=== PATIENT | male | born 1945 | race Caucasian/White ===

== ENCOUNTER 2022-05-07 03:28 | Observation (INO) ==
[2022-05-07] MEDS ORDERED: fentaNYL citrate 100 MCG/2 ML VIAL IV STA (03:46)
[2022-05-07] MEDS ORDERED: ASPIRIN CHEW 324 MG PO STA (03:46)
--- NOTE | 2022-05-07 03:55 | Emergency Department Note ---
History of Present Illness General Chief complaint: Back Injury/Pain Stated complaint: BACK PAIN Time Seen by Provider: 05/07/22 03:40 History of Present Illness Maximum Pain Intensity: 7 77-year-old male with a history of hypertension and diabetes presents with a 2- day history of initially intermittent mid scapular back pain that is nonradiating in nature. Patient denies substernal chest pressure denies left arm pain denies nausea vomiting or diaphoresis. Patient states he had taken a Tylenol which seemed to decrease the pain. Patient denies any recent injury. Patient denies cough cold congestion or fever. Patient was seen by a physician public health training assistant was told to monitor it and take Tylenol. Patient states that the pain worsened yesterday morning its been and its been mid scapular is nonradiating there are no other associated symptoms. There are no other mitigating or torie viating factors. Patient has no prior history of acute coronary syndrome acute PA acute thoracic aortic dissection or acute pulmonary embolism according the patient. Home Medications Medication Instructions Recorded Confirmed Type blood sugar diagnostic (FreeStyle #100 ea 01/02/22 05/06/22 Rx Lite Strips) metformin 500 mg tablet 500 mg PO BID #180 tab 01/02/22 05/06/22 Rx simvastatin 20 mg tablet 20 mg PO QPM #90 tab 01/02/22 05/06/22 Rx sitagliptin 100 mg tablet (Januvia) 100 mg PO QAM #90 tab 01/02/22 05/06/22 Rx lisinopril 20 mg tablet 20 mg PO QAM 02/16/22 05/06/22 History cholecalciferol (vitamin D3) 25 25 mcg PO DAILY 05/06/22 05/06/22 History mcg (1,000 unit) capsule Allergies Allergy/AdvReac Type Severity Reaction Status Date / Time No Known Drug Allergies Allergy NKDA Verified 05/06/22 12:36 Past Med/Surg History Medical History BPH NOS w ur obs/LUTS Chronic kidney disease, stage 3 (moderate) Diabetes mellitus, type 2 Hyperlipidemia Hypertension Nephrolithiasis Obstructive sleep apnea Vitamin D deficiency Surgical History H/O umbilical hernia repair History of lithotripsy Hx of tonsillectomy Family History Mother Pancreatic cancer Father , age 70 No problems noted. Other No family history of adverse response to anesthesia Denies family history of Ovarian cancer Prostate cancer Myocardial infarction Breast cancer Colorectal cancer Social History Smoking Status: Current every day smoker Tobacco Type: Cigarettes Age Quit Using Tobacco: 76; packs per day: 0.5; Cigarettes Per Day: 10 PER DAY; Second Hand Exposure: Yes; Hx Alcohol Use: No Hx Substance Use: No Preferred Language: Yi Communication Ability: Effective Visual Impairment: No Limitations Hearing Ability: Normal Parking Attendant Required: No Beliefs That Will Affect Care: None marital status: Current Living Situation: Spouse and Family Current Living Situation Comment: AND DAUGHTER current occupational status: retired current occupation: [employer] How many Children do You have: 1 How many Children do You have Comment: 1 daughter Feels Safe at Home: Yes Diet Comment: regular caffeine: Yes during the past year weight has: increased > 10 lbs Dental Care, Regularly: Yes Physical Activity Frequency: Daily Seatbelt Use: always Sunscreen Use: No Assistive Devices: CPAP Review of Systems A total of 10 systems reviewed and were otherwise negative Constitutional: no fever Cardiovascular: no chest pain and no orthopnea Gastrointestinal: no abdominal pain Musculoskeletal: + back pain Physical Exam Vital Signs Vital Signs - 24 hr 05/07/22 03:32 05/07/22 04:00 05/07/22 04:39 Temperature 36.4 C L Temperature Source Temporal Artery Scan Pulse Rate 100 H 86 104 H Pulse Rate from SpO2 Sensor 90 95 H Respiratory Rate 20 21 19 Respiratory Effort / Characteristics Non-Labored Spontaneous Respiratory Depth Normal Blood Pressure 168/76 H 140/79 137/93 Blood Pressure Mean 106 99 107 Pulse Oximetry 95 95 86 L Oxygen Delivery Method Room Air Room Air Room Air Oxygen Flow Rate Sepsis New/Unexplained Change in Mental Status N/A Sepsis Action Taken by Nursing No Action Required 05/07/22 04:42 05/07/22 05:00 05/07/22 05:37 Temperature Temperature Source Pulse Rate 87 87 Pulse Rate from SpO2 Sensor Respiratory Rate 17 20 Respiratory Effort / Characteristics Respiratory Depth Blood Pressure 147/88 H 131/79 Blood Pressure Mean 107 96 Pulse Oximetry 96 97 93 Oxygen Delivery Method Nasal Cannula Nasal Cannula Room Air Oxygen Flow Rate 2 2 Sepsis New/Unexplained Change in Mental Status Sepsis Action Taken by Nursing 05/07/22 06:00 Temperature Temperature Source Pulse Rate 86 Pulse Rate from SpO2 Sensor 89 Respiratory Rate 17 Respiratory Effort / Characteristics Respiratory Depth Blood Pressure 127/66 Blood Pressure Mean 86 Pulse Oximetry 94 Oxygen Delivery Method Room Air Oxygen Flow Rate Sepsis New/Unexplained Change in Mental Status Sepsis Action Taken by Nursing VITAL SIGNS - Vital signs and nursing notes were reviewed. GENERAL - No acute distress. Communicates well with provider and answers questions appropriately. SKIN - Without rashes. HEAD - NC/AT. EYES - PERRL with EOMI bilaterally. Sclera anicteric. Palpebral conjunctiva pink and moist with no injection noted. EARS - No deformities of external structures noted on gross examination bilaterally. NOSE - Midline and without cyanosis. No epistaxis or purulent drainage noted. Septum midline without deviation or septal hematoma noted. MOUTH/OROPHARYNX - Without perioral cyanosis. . Tongue midline with equal elevation of palate bilaterally. No tonsillar hypertrophy, erythema, or exudates noted. [] dentition noted. NECK - Neck with FROM. Supple to palpation. LUNGS - Chest wall symmetric without accessory muscle use, intercostals retractions, or central cyanosis. Normal vesicular breath sounds CTA B/L. No wheezes, rales, or rhonchi appreciated. CARDIAC - RRR with S1/S2. No murmur, rubs, or gallops appreciated. ABDOMEN - Abdominal contour soft without pulsations or visible masses. BS normoactive all four quadrants. No tenderness, palpable masses, hepatosplenomegaly, or ascites noted. EXTREMITIES - No clubbing or peripheral cyanosis. +5/5 strength noted in UE/LE bilaterally. NEUROLOGIC - Cranial nerves II through XII grossly intact. PSYCH - A&Ox3 and cooperates fully with examiner. Pt is very pleasant and interacts well with examiner. Course Reevaluation(s) Reevaluation #1: Patient is resting in no current distress. No significant back or chest pain. Patient is awaiting CT. The case was discussed with the hospitalist for a dmission. Patient is a diabetic with hypertension and is having mid scapular back pain. Will admit for cardiac rule out Time: 05:52 Administered Medications Discontinued Medications Aspirin (Aspirin Chew 324 Mg) 324 mg PO NOW STA Stop: 05/07/22 03:47 Last Admin: 05/07/22 03:51 Dose: 324 mg Documented by: [id number] Fentanyl Citrate (Fentanyl Citrate 100 Mcg/2 Ml Vial) 50 mcg IV NOW STA Stop: 05/07/22 03:47 Last Admin: 05/07/22 03:51 Dose: 50 mcg Documented by: [id number] Ioversol (Optiray 320 125ml) 100 ml IV ONCE ONE Stop: 05/07/22 04:37 Last Admin: 05/07/22 04:36 Dose: 108 ml Documented by: [id number] Medical Decision Making Medical Records Attestation: I reviewed the patient's medical records. Home Medications Current Medication List: was personally reviewed by me Laboratory Data Attestation: I reviewed the patient's lab results. Result diagrams: 05/07/22 03:49 05/07/22 03:49 Lab Results 05/07/22 05/07/22 05/07/22 Range/Units 03:49 03:49 03:49 WBC 10.72 (4.8-10.8) K/uL RBC 5.09 (4.7-6.1) M/uL Hgb 16.3 (14.0-18.0) g/dL Hct 46.5 (42-52) % MCV 91.4 (80-100) fL MCH 32.0 (25-34) pg MCHC 35.1 (32-36) g/dL RDW Std Deviation 44.8 (36.4-46.3) fL RDW Coeff of Johan 13.4 (11.5-14.5) % Plt Count 398 (130-400) K/uL MPV 9.0 (7.4-10.4) fL Immature Gran % (Auto) 0.4 % Neut % (Auto) 58.4 % Lymph % (Auto) 28.3 % [place] % (Auto) 10.0 % Eos % (Auto) 2.5 % Baso % (Auto) 0.4 % Neut # (Auto) 6.27 (1.4-6.5) K/uL Lymph # (Auto) 3.03 (1.2-3.4) K/uL [place] # (Auto) 1.07 H (0.11-0.59) K/uL Eos # (Auto) 0.27 (0-0.5) K/uL Baso # (Auto) 0.04 (0-0.2) K/uL Immature Gran # (Auto) 0.04 H (0.00-0.02) K/uL PT 10.4 (9.0-12.0) Seconds INR 1.0 (0.9-1.1) APTT 28.6 (21.0-31.0) Seconds PTT Ratio 1.0 D-Dimer 690 H* (0-500) ug/L FEU Sodium 136 (136-145) mmol/L Potassium 4.5 (3.5-5.1) mmol/L Chloride 103 (98-107) mmol/L Carbon Dioxide 26 (21-32) mmol/L Anion Gap 7 (3-11) BUN 25 H (6-23) mg/dl Creatinine 1.63 H (0.6-1.4) mg/dl Est Cr Clr Drug Dosing 46.8 ml/min Est GFR ( Amer) 47.1 ml/min Est GFR (Non-Af Amer) 40.6 ml/min BUN/Creatinine Ratio 15.3 (10-20) Glucose 133 H (70-99(Fasting)) mg/dl Calcium 9.8 (8.5-10.1) mg/dl Total Bilirubin 0.7 (0.2-1.0) mg/dl AST 26 (13-39) U/L ALT 27 (7-52) U/L Alkaline Phosphatase 62 (34-104) U/L Troponin I High Sens 9.3 (0-20) pg/ml Total Protein 7.8 (6.0-8.3) gm/dl Albumin 4.3 (3.4-5.0) gm/dl Globulin 3.5 (2.5-4.0) gm/dl Albumin/Globulin Ratio 1.2 (0.9-2) SARS-CoV-2, RNA, NAAT (NEGATIVE) 05/07/22 Range/Units 03:55 WBC (4.8-10.8) K/uL RBC (4.7-6.1) M/uL Hgb (14.0-18.0) g/dL Hct (42-52) % MCV (80-100) fL MCH (25-34) pg MCHC (32-36) g/dL RDW Std Deviation (36.4-46.3) fL RDW Coeff of Johan (11.5-14.5) % Plt Count (130-400) K/uL MPV (7.4-10.4) fL Immature Gran % (Auto) % Neut % (Auto) % Lymph % (Auto) % [place] % (Auto) % Eos % (Auto) % Baso % (Auto) % Neut # (Auto) (1.4-6.5) K/uL Lymph # (Auto) (1.2-3.4) K/uL [place] # (Auto) (0.11-0.59) K/uL Eos # (Auto) (0-0.5) K/uL Baso # (Auto) (0-0.2) K/uL Immature Gran # (Auto) (0.00-0.02) K/uL PT (9.0-12.0) Seconds INR (0.9-1.1) APTT (21.0-31.0) Seconds PTT Ratio D-Dimer (0-500) ug/L FEU Sodium (136-145) mmol/L Potassium (3.5-5.1) mmol/L Chloride (98-107) mmol/L Carbon Dioxide (21-32) mmol/L Anion Gap (3-11) BUN (6-23) mg/dl Creatinine (0.6-1.4) mg/dl Est Cr Clr Drug Dosing ml/min Est GFR ( Amer) ml/min Est GFR (Non-Af Amer) ml/min BUN/Creatinine Ratio (10-20) Glucose (70-99(Fasting)) mg/dl Calcium (8.5-10.1) mg/dl Total Bilirubin (0.2-1.0) mg/dl AST (13-39) U/L ALT (7-52) U/L Alkaline Phosphatase (34-104) U/L Troponin I High Sens (0-20) pg/ml Total Protein (6.0-8.3) gm/dl Albumin (3.4-5.0) gm/dl Globulin (2.5-4.0) gm/dl Albumin/Globulin Ratio (0.9-2) SARS-CoV-2, RNA, NAAT NEGATIVE (NEGATIVE) Imaging Data Attestation: I personally reviewed and interpreted this imaging study as follows: My Impression: Chest x-ray interpreted by me normal mediastinum no obvious pneumothorax negative for infiltrate Radiologist's Impression: CTA CHEST: Prior noncontrast chest CT 02/16/2022 No PE No aortic dissection or aneurysm Mild basilar atelectasis. Lower lobe bronchial wall thickening. Correlate for bronchitis/edema. Coronary calcifications. Partially visualized distended gallbladder. Atrophic pancreas. Nodular adrenal glands. ECG Data Attestation: I personally reviewed and interpreted this ECG as follows: Additional Comments: EKG interpreted by me sinus rhythm rate of 89, right bundle branch block no obvious ST segment elevation or depression, right axis deviation, degree AV block MDM Narrative Decision making differential diagnosis angina, unstable angina, acute coronary syndrome, acute PA, thoracic aortic dissection, pulmonary embolism, musculoskeletal back pain; plan is to check labs EKG CT Impression & Plan Back pain Discharge Plan Visit Data Chief Complaint: Back Injury/Pain Stated Complaint: BACK PAIN ED Provider: Marcus Garcia Discharge Problem: Back pain Patient Disposition: Being Evaluated by Hospitalist Forms Stand Alone Forms: My [facility] [place] [employer] [place]! Prescriptions Prescriptions: No Action (DME) FreeStyle Lite Strips Strip See Rx Instructions .Route Qty: 100 RF: 5 metformin 500 mg tablet 500 mg PO BID Qty: 180 RF: 1 simvastatin 20 mg tablet 20 mg PO QPM Qty: 90 RF: 1 Januvia 100 mg tablet 100 mg PO QAM Qty: 90 RF: 1 cholecalciferol (vitamin D3) 25 mcg (1,000 unit) capsule 25 mcg PO DAILY RF: 0 lisinopril 20 mg tablet 20 mg PO QAM RF: 0 Referrals Referrals: Laurie Lynn DO [Primary Care Provider] - Discharge Problem: Back pain Qualifiers: Back pain location: thoracic back pain Chronicity: acute Back pain laterality: midline Qualified Code(s): M54.6 - Pain in thoracic spine
[2022-05-07 03:58] LABS: Basophils # (auto) 0.04 K/uL (0-0.2); Basophils % (auto) 0.4 %; Eosinophils # (auto) 0.27 K/uL (0-0.5); Eosinophils % (auto) 2.5 %; Hematocrit (blood only) 46.5 % (42-52); Hemoglobin 16.3 g/dL (14.0-18.0); Immature Granulocytes # (auto) 0.04 K/uL (0.00-0.02); Immature Granulocytes % (auto) 0.4 %; Lymphocytes # (auto) 3.03 K/uL (1.2-3.4); Lymphocytes % (auto) 28.3 %; Mean Corpuscular Hgb Conc 35.1 g/dL (32-36); Mean Corpuscular Volume 91.4 fL (80-100); Monocytes # (auto) 1.07 K/uL (0.11-0.59); Neutrophils # (auto) 6.27 K/uL (1.4-6.5); Neutrophils % (auto) 58.4 %; Platelet Count 398 K/uL (130-400); RDW Coefficient of Variation 13.4 % (11.5-14.5); RDW Standard Deviation 44.8 fL (36.4-46.3); Red Blood Count 5.09 M/uL (4.7-6.1); White Blood Count 10.72 K/uL (4.8-10.8)
[2022-05-07 04:15] LABS: Partial Thromboplastin Time 28.6 Seconds (21.0-31.0); Prothrombin Time 10.4 Seconds (9.0-12.0)
[2022-05-07 04:18] LABS: D Dimer 690 ug/L FEU (0-500)
[2022-05-07 04:20] LABS: Albumin Globulin Ratio 1.2 (0.9-2); Albumin Level 4.3 gm/dl (3.4-5.0); BUN Creatinine Ratio 15.3 (10-20); Bilirubin,Total 0.7 mg/dl (0.2-1.0); Calcium 9.8 mg/dl (8.5-10.1); Creatinine Clr Calc Pharmacy 46.8 ml/min; Est GFR (African American) 47.1 ml/min; Est GFR (Non-African American) 40.6 ml/min; Globulin 3.5 gm/dl (2.5-4.0); Potassium 4.5 mmol/L (3.5-5.1); Total Protein 7.8 gm/dl (6.0-8.3)
[2022-05-07 04:23] LABS: Troponin I High Sensitivity 9.3 pg/ml (0-20)
[2022-05-07] MEDS ORDERED: OPTIRAY 320 125ml IV ONE (04:36)
--- NOTE | 2022-05-07 06:16 | History & Physical Report ---
Date of Service May 07, 2022 Assessment & Plan (1) Interscapular pain: Plan: Persistent interscapular pain- The patient will be admitted to telemetry for serial cardiac enzymes, serial EKG's, cardiac rhythm monitoring and a 2-D echocardiogram with Dopplers. Concerned about the possibility of an anginal equivalent Chest x-ray negative for acute disease CTA chest PE protocol is pending, and will be acted on appropriately if PE is present (2) Chronic kidney disease, stage 3 (moderate): Plan: Creatinine 1.63 upon admission, with range 1.49-1.95 Follow serially (3) Vitamin D deficiency: Plan: Continue vitamin D 25 mcg p.o. daily (4) Hyperlipidemia: Plan: Continue simvastatin 20 mg every evening. Check a fasting lipid panel (5) BPH NOS w ur obs/LUTS: Plan: Monitor urine output (6) Hypertension: Plan: Continue lisinopril (7) Diabetes mellitus, type 2: Plan: Hold Sitagliptin and metformin Place on Accu-Cheks before meals and at bedtime with NovoLog coverage per scale (8) Obstructive sleep apnea: Plan: CPAP at bedtime as needed History of Present Illness Chief Complaint: The patient presents to the emergency department with 2 days of interscapular back pain that had initially been getting better, but since it worsened over the past 24 hours, he presents for assessment. Primary Care Provider: Laurie Lynn DO The patient is a 77-year-old male with a past medical history including diabetes mellitus, hypertension, hyperlipidemia, BPH with LUTS, ARIANE, left ureteral calculus, and vitamin D deficiency. He presents with symptoms as noted above. He reports having a similar pain about 1 and half years ago, which responded to steroids. He denies any recent travels or sick exposures. He denies any change in physical activity level. Allergies Allergy/AdvReac Type Severity Reaction Status Date / Time No Known Drug Allergies Allergy NKDA Verified 05/06/22 12:36 Home Medications Medication Instructions Recorded Confirmed Type blood sugar diagnostic (FreeStyle #100 ea 01/02/22 05/06/22 Rx Lite Strips) metformin 500 mg tablet 500 mg PO BID #180 tab 01/02/22 05/06/22 Rx simvastatin 20 mg tablet 20 mg PO QPM #90 tab 01/02/22 05/06/22 Rx sitagliptin 100 mg tablet (Januvia) 100 mg PO QAM #90 tab 01/02/22 05/06/22 Rx lisinopril 20 mg tablet 20 mg PO QAM 02/16/22 05/06/22 History cholecalciferol (vitamin D3) 25 25 mcg PO DAILY 05/06/22 05/06/22 History mcg (1,000 unit) capsule Past Med/Surg History Medical History BPH NOS w ur obs/LUTS Chronic kidney disease, stage 3 (moderate) Diabetes mellitus, type 2 Hyperlipidemia Hypertension Nephrolithiasis Obstructive sleep apnea Vitamin D deficiency Surgical History H/O umbilical hernia repair History of lithotripsy Hx of tonsillectomy Family History Mother Pancreatic cancer Father , age 70 No problems noted. Other No family history of adverse response to anesthesia Denies family history of Ovarian cancer Prostate cancer Myocardial infarction Breast cancer Colorectal cancer Social History Smoking Status: Current every day smoker Tobacco Type: Cigarettes Age Quit Using Tobacco: 76; packs per day: 0.5; Cigarettes Per Day: 10 PER DAY; Second Hand Exposure: Yes; Hx Alcohol Use: No Hx Substance Use: No Preferred Language: Gabonese Communication Ability: Effective Visual Impairment: No Limitations Hearing Ability: Normal Char Filter Operator Helper Required: No Beliefs That Will Affect Care: None marital status: Current Living Situation: Spouse and Family Current Living Situation Comment: AND DAUGHTER current occupational status: retired current occupation: [employer] of [employer] How many Children do You have: 1 How many Children do You have Comment: 1 daughter Feels Safe at Home: Yes Diet Comment: regular caffeine: Yes during the past year weight has: increased > 10 lbs Dental Care, Regularly: Yes Physical Activity Frequency: Daily Seatbelt Use: always Sunscreen Use: No Assistive Devices: CPAP Review of Systems Review of Systems: The patient denies chest pain, palpitations, shortness of breath, dyspnea on exertion, cough, lower extremity swelling, sore throat, fevers, chills, sweats, weight change, fatigue, nausea, vomiting, diarrhea , constipation, abdominal pain, pelvic pain, blood in urine or stool, dysuria, urinary frequency or urgency, lightheadedness, dizziness, headache, memory loss, loss of consciousness, rash, abnormal bruising or bleeding, imbalance, focal or generalized weakness, numbness or tingling in arms or legs, generalized arthralgias or myalgias, neck pain, or night sweats. The review of systems is otherwise negative other than for that already noted above, and at least 10 systems have been reviewed. Physical Exam Physical Exam: The patient is awake, alert and oriented 3, well developed and well nourished, normocephalic and atraumatic, lying in bed and in no acute distress. HEENT--PERRL, EOMI, mucous membranes and oropharynx normal. Neck--supple. No JVD. No bruits. Thyroid normal, trachea midline, no adenopathy. Heart--normal S1 and S2. No murmurs, rubs or gallops. Lungs--clear bilaterally, no respiratory distress, no accessory muscle use. Abdomen--normal bowel sounds and soft. Nontender. Nondistended, no hernias or masses, no organomegaly. Extremities--no cyanosis or clubbing. No edema. There are good distal pulses b/l. Dermatologic--normal skin turgor, normal color, no abnormal lymph nodes, no rash. Neurologic--cranial nerves II through XII grossly intact. Rheumatologic--normal range of motion. No reproducible cervical, thoracic, or lumbar spine back pain Psychiatric--normal affect. Results & Data Results & Data ([facility]) Vital Signs (Past 12 Hours) Vital Signs Temp Pulse Resp BP Pulse Ox 05/07/22 05:00 87 17 147/88 H 97 05/07/22 04:42 96 05/07/22 04:39 104 H 19 137/93 86 L 05/07/22 04:00 86 21 140/79 95 05/07/22 03:32 36.4 C L 100 H 20 168/76 H 95 Laboratory Results Laboratory Results WBC 10.72 K/uL (4.8-10.8) 05/07/22 03:49 RBC 5.09 M/uL (4.7-6.1) 05/07/22 03:49 Hgb 16.3 g/dL (14.0-18.0) 05/07/22 03:49 Hct 46.5 % (42-52) 05/07/22 03:49 MCV 91.4 fL (80-100) 05/07/22 03:49 MCH 32.0 pg (25-34) 05/07/22 03:49 MCHC 35.1 g/dL (32-36) 05/07/22 03:49 RDW Std Deviation 44.8 fL (36.4-46.3) 05/07/22 03:49 RDW Coeff of Johan 13.4 % (11.5-14.5) 05/07/22 03:49 Plt Count 398 K/uL (130-400) 05/07/22 03:49 MPV 9.0 fL (7.4-10.4) 05/07/22 03:49 Immature Gran % (Auto) 0.4 % 05/07/22 03:49 Neut % (Auto) 58.4 % 05/07/22 03:49 Lymph % (Auto) 28.3 % 05/07/22 03:49 [place] % (Auto) 10.0 % 05/07/22 03:49 Eos % (Auto) 2.5 % 05/07/22 03:49 Baso % (Auto) 0.4 % 05/07/22 03:49 Neut # (Auto) 6.27 K/uL (1.4-6.5) 05/07/22 03:49 Lymph # (Auto) 3.03 K/uL (1.2-3.4) 05/07/22 03:49 [place] # (Auto) 1.07 K/uL (0.11-0.59) H 05/07/22 03:49 Eos # (Auto) 0.27 K/uL (0-0.5) 05/07/22 03:49 Baso # (Auto) 0.04 K/uL (0-0.2) 05/07/22 03:49 Immature Gran # (Auto) 0.04 K/uL (0.00-0.02) H 05/07/22 03:49 PT 10.4 Seconds (9.0-12.0) 05/07/22 03:49 INR 1.0 (0.9-1.1) 05/07/22 03:49 APTT 28.6 Seconds (21.0-31.0) 05/07/22 03:49 PTT Ratio 1.0 05/07/22 03:49 D-Dimer 690 ug/L FEU (0-500) H* 05/07/22 03:49 Sodium 136 mmol/L (136-145) 05/07/22 03:49 Potassium 4.5 mmol/L (3.5-5.1) 05/07/22 03:49 Chloride 103 mmol/L (98-107) 05/07/22 03:49 Carbon Dioxide 26 mmol/L (21-32) 05/07/22 03:49 Anion Gap 7 (3-11) 05/07/22 03:49 BUN 25 mg/dl (6-23) H 05/07/22 03:49 Creatinine 1.63 mg/dl (0.6-1.4) H 05/07/22 03:49 Est Cr Clr Drug Dosing 46.8 ml/min 05/07/22 03:49 Est GFR ( Amer) 47.1 ml/min 05/07/22 03:49 Est GFR (Non-Af Amer) 40.6 ml/min 05/07/22 03:49 BUN/Creatinine Ratio 15.3 (10-20) 05/07/22 03:49 Glucose 133 mg/dl (70-99(Fasting)) H 05/07/22 03:49 Calcium 9.8 mg/dl (8.5-10.1) 05/07/22 03:49 Total Bilirubin 0.7 mg/dl (0.2-1.0) 05/07/22 03:49 AST 26 U/L (13-39) 05/07/22 03:49 ALT 27 U/L (7-52) 05/07/22 03:49 Alkaline Phosphatase 62 U/L (34-104) 05/07/22 03:49 Troponin I High Sens 9.3 pg/ml (0-20) 05/07/22 03:49 Total Protein 7.8 gm/dl (6.0-8.3) 05/07/22 03:49 Albumin 4.3 gm/dl (3.4-5.0) 05/07/22 03:49 Globulin 3.5 gm/dl (2.5-4.0) 05/07/22 03:49 Albumin/Globulin Ratio 1.2 (0.9-2) 05/07/22 03:49 SARS-CoV-2, RNA, NAAT NEGATIVE (NEGATIVE) 05/07/22 03:55 Code Status & VTE Plan Code Status Full code VTE Prophylaxis Plan VTE Prophylaxis will be ordered: Yes PG Care Time/CCT Total # of Minutes Spent Total Time Spent with Patient: Total time spent is greater than 50% in coordination of care (as documented) at patient's floor/unit and/or counseling patient: Coding Level of Care Code INT OBSERVATION CARE 70M LVL 3 Diagnoses Interscapular pain M54.89 Chronic kidney disease, stage 3 (moderate) N18.30 Vitamin D deficiency E55.9 Hyperlipidemia E78.5 BPH NOS w ur obs/LUTS N40.1 Hypertension I10 Diabetes mellitus, type 2 E11.9 Obstructive sleep apnea G47.33
[2022-05-07] MEDS ORDERED: GLUCOSE 40% GEL 15 GM TUBE PO PRN (07:51)
[2022-05-07] MEDS ORDERED: GLUCAGON FOR INJ 1 MG VIAL SQ PRN (07:51)
[2022-05-07] MEDS ORDERED: ONDANSETRON INJ 2 MG/ML 2 ML VIAL IV PRN (07:51)
[2022-05-07] MEDS ORDERED: GLUCOSE 10 TABS/TUBE PO PRN (07:51)
[2022-05-07] MEDS ORDERED: DEXTROSE 50% 50 ML SYRINGE IV PRN (07:51)
[2022-05-07] MEDS ORDERED: NITROGLYCERIN SL 0.4 MG/TAB TAB SL PRN (07:51)
[2022-05-07] MEDS ORDERED: CARBOHYDRATES FOR HYPOGLYCEMIA PO PRN (07:51)
--- NOTE | 2022-05-07 07:53 | XRay Report ---
SINGLE VIEW CHEST CLINICAL HISTORY: Atypical chest pain FINDINGS: An AP, portable, upright chest radiograph is compared to study dated 02/28/2021 and correlat ed with chest CT dated 02/16/2022. The heart is mildly enlarged noting atherosclerotic calcification o f the thoracic aorta. The pulmonary vasculature is noncongested. Mild emphysema and chronic interstit ial thickening is similar to previous. There is bibasilar scarring/atelectasis. No airspace consolida tion or large pleural effusion is identified. No pneumothorax is seen. The skeletal structures are os teopenic. The bony thorax is grossly intact. IMPRESSION: Cardiomegaly and mild emphysema with no acute cardiopulmonary abnormality identified. ACT 112: Negative or not required by law. Electronically signed by: Darius Ford M.D. 05/07/2022 7:52 AM
--- NOTE | 2022-05-07 08:00 | CT Scan Report ---
CT ANGIOGRAM OF THE CHEST CLINICAL HISTORY: Atypical chest pain. COMPARISON STUDY: Chest x-ray dated 05/07/2022. Chest CT dated 02/16/2022. TECHNIQUE: Following the IV administration of 108 cc of Optiray 320, CT angiogram of the chest was pe rformed from the upper abdomen to the thoracic inlet utilizing the pulmonary embolus protocol. Images are reviewed in the axial, sagittal, and coronal planes. 3-D MIPS images are created and assessed. I V contrast was administered without complication. A dose lowering technique was utilized adhering to the principles of ALARA. CT DOSE: 511.33 mGy.cm FINDINGS: Thyroid: Imaged portions of the thyroid gland are normal in size and attenuation. Thoracic aorta: There is atherosclerotic calcification of the thoracic aorta, which is normal in celine liliana and demonstrates standard 3-vessel arch anatomy. No dissection is seen. Pulmonary vasculature: The pulmonary trunk is normal in caliber. There are no filling defects identif ied in main, lobar, or segmental pulmonary branches to suggest pulmonary embolus. Heart: The heart is enlarged and without pericardial effusion. The coronary arteries are densely calc ified. Lungs and pleural spaces: There is mild emphysematous change. No airspace consolidation typical for p neumonia or pleural effusion is identified. Minimal secretions are noted in the right mainstem bronch us. There is diffuse peribronchial thickening. Scarring/atelectasis is noted at the lung bases. A 5 m m nodule with central cavitation is again seen in the lingula on image 123. This is unchanged from pr evious. Mediastinum: There is no mediastinal lymphadenopathy. Meseret: Clear. Axillae: There is no axillary lymphadenopathy. Upper abdomen: There is a tiny hiatal hernia. The gallbladder is distended but otherwise normal as vi sualized. There is fatty atrophy of the pancreas. Skeletal structures: The skeletal structures are osteopenic. Mild degenerative change is noted in the shoulders and spine. No lytic or blastic bony lesions are seen. There is a subacute/healing right po sterolateral 8th rib fracture. IMPRESSION: 1. There is no evidence of pulmonary embolus in the main, lobar, or segmental pulmonary arteries. 2. Cardiomegaly and mild emphysema. 3. There is no airspace consolidation typical for pneumonia or pleural effusion. 4. Diffuse peribronchial thickening suggests bronchitis/reactive airway disease. Clinical correlation will be required. 5. There is a subacute/healing right posterolateral 8th rib fracture. 6. A 5 mm pulmonary nodule in the lingula is unchanged from 02/16/2022. If clinically warranted this c an be followed as per the Fleischner criteria. See below. 7. Advanced coronary artery calcification. Please refer to below summary of Fleischner criteria recommendations for follow-up of incidental CT n odules (Mavis Moyer, Guidelines for management of small pulmonary nodules detected on CT scans: A sta tement from the Fleischner Society, Radiology 237: [phone].) SOLID NODULES Solitary nodule size: <6 mm * low risk patients: no follow-up needed * high risk patients: optional CT at 12 months Solitary nodule size: 6-8 mm * low risk patients: follow-up at 6-12 months, then consider further follow-up at 18-24 months * high risk patients: initial follow-up CT at 6-12 months and then at 18-24 months if no change Solitary nodule size: >8 mm * either low or high risk patients - consider follow-up CT at 3 months, and/or CT-PET, and/or biopsy Multiple nodules size: <6 mm * low risk patients: no routine follow-up * high risk patients: optional CT at 12 months Multiple nodules size: 6-8 mm * low risk patients: follow-up at 3-6 months, then consider further follow-up at 18-24 months * high risk patients: follow-up at 3-6 months, then at 18-24 months if no change Multiple nodules size: >8 mm * low risk patients: follow-up at 3-6 months, then consider further follow-up at 18-24 months * high risk patients: follow-up at 3-6 months, then at 18-24 months if no change Note: newly detected indeterminate nodule in persons 35 years of age or older. * low risk patients: minimal or absent history of smoking and/or other known risk factors * high risk patients: history of smoking or of other known risk factors (e.g. first degree relative with lung cancer, or exposure to asbestos, radon, uranium) * if a nodule up to 8 mm is partly solid or is ground glass further follow-up is required after 24 m onths to exclude possible slow growing adenocarcinoma (ASHLEY) SUBSOLID NODULES Solitary pure ground-glass nodule * nodule size <6 mm - no CT follow-up required * nodule size >=6 mm - follow-up CT at 6-12 months, then every 2 years until 5 years Solitary part-solid nodule * nodule size <6 mm - no CT follow-up required * nodule size >=6 mm - follow-up CT at 3-6 months. If unchanged, and solid component remains <6 mm, then annual follow-up for 5 years Multiple subsolid nodules * nodule size <6 mm - follow-up CT at 3-6 months, consider further follow-up at 2 and 4 years if sta ble * nodule size >=6 mm - follow-up CT at 3-6 months, subsequent management based on the most suspiciou s nodule(s) ACT 112: Negative or not required by law. Electronically signed by: Darius Ford M.D. 05/07/2022 7:58 AM
[2022-05-07] MEDS: INSULIN ASPART PER UNIT SC SCH ×2 (08:44→12:35)
[2022-05-07] MEDS ORDERED: ASPIRIN 81 MG ECTAB PO SCH (09:00)
[2022-05-07] MEDS ORDERED: lisinopril 20 MG TAB PO SCH (09:00)
[2022-05-07] MEDS ORDERED: CHOLECALCIFEROL 1,000 UNITS 25 MCG TAB PO SCH (09:00)
[2022-05-07] MEDS: ACETAMINOPHEN 325 MG TAB PO PRN ×2 (10:36→16:01)
--- NOTE | 2022-05-07 12:42 | XCELERA ---
[id number] \\[id number]___[id number]
--- NOTE | 2022-05-07 15:21 | Discharge Summary ---
Date of Service May 07, 2022 Admission HPI Per Admitting Provider The patient is a 77-year-old male with a past medical history including diabetes mellitus, hypertension, hyperlipidemia, BPH with LUTS, ARIANE, left ureteral calculus, and vitamin D deficiency. He presents with symptoms as noted above. He reports having a similar pain about 1 and half years ago, which responded to steroids. He denies any recent travels or sick exposures. He denies any change in physical activity level. Principal Diagnosis Interscapular pain 2/2 left levator scapulae hypertonicity Discharge Exam Genera--awake, AO3, WD/WN, NC/AT, in no acute distress. HEENT--EOMI, moist mucous membranes Neck--supple. No JVD. No bruits. Heart--RRR. No murmurs, rubs or gallops. Lungs--CTA bilaterally, no respiratory distress, no accessory muscle use. Abdomen--normal bowel sounds and soft. Nontender. Nondistended without masses. Extremities--no cyanosis or clubbing. No edema. Good distal pulses b/l. Dermatologic--warm, dry, no rash. Neurologic--cranial nerves II through XII grossly intact. MSK--hypertonic left levator scapulae musculature mildly tender to deep palpation, no midline tenderness Psychiatric--normal affect. Discharge Data Allergies Allergy/AdvReac Type Severity Reaction Status Date / Time No Known Drug Allergies Allergy NKDA Verified 05/06/22 12:36 Consultations 05/07/22 05:51 ED Decision to Admit Stat Ordered Studies Laboratory Results WBC 10.72 K/uL (4.8-10.8) 05/07/22 03:49 RBC 5.09 M/uL (4.7-6.1) 05/07/22 03:49 Hgb 16.3 g/dL (14.0-18.0) 05/07/22 03:49 Hct 46.5 % (42-52) 05/07/22 03:49 MCV 91.4 fL (80-100) 05/07/22 03:49 MCH 32.0 pg (25-34) 05/07/22 03:49 MCHC 35.1 g/dL (32-36) 05/07/22 03:49 RDW Std Deviation 44.8 fL (36.4-46.3) 05/07/22 03:49 RDW Coeff of Johan 13.4 % (11.5-14.5) 05/07/22 03:49 Plt Count 398 K/uL (130-400) 05/07/22 03:49 MPV 9.0 fL (7.4-10.4) 05/07/22 03:49 Immature Gran % (Auto) 0.4 % 05/07/22 03:49 Neut % (Auto) 58.4 % 05/07/22 03:49 Lymph % (Auto) 28.3 % 05/07/22 03:49 Stanley % (Auto) 10.0 % 05/07/22 03:49 Eos % (Auto) 2.5 % 05/07/22 03:49 Baso % (Auto) 0.4 % 05/07/22 03:49 Neut # (Auto) 6.27 K/uL (1.4-6.5) 05/07/22 03:49 Lymph # (Auto) 3.03 K/uL (1.2-3.4) 05/07/22 03:49 Stanley # (Auto) 1.07 K/uL (0.11-0.59) H 05/07/22 03:49 Eos # (Auto) 0.27 K/uL (0-0.5) 05/07/22 03:49 Baso # (Auto) 0.04 K/uL (0-0.2) 05/07/22 03:49 Immature Gran # (Auto) 0.04 K/uL (0.00-0.02) H 05/07/22 03:49 PT 10.4 Seconds (9.0-12.0) 05/07/22 03:49 INR 1.0 (0.9-1.1) 05/07/22 03:49 APTT 28.6 Seconds (21.0-31.0) 05/07/22 03:49 PTT Ratio 1.0 05/07/22 03:49 D-Dimer 690 ug/L FEU (0-500) H* 05/07/22 03:49 Sodium 136 mmol/L (136-145) 05/07/22 03:49 Potassium 4.5 mmol/L (3.5-5.1) 05/07/22 03:49 Chloride 103 mmol/L (98-107) 05/07/22 03:49 Carbon Dioxide 26 mmol/L (21-32) 05/07/22 03:49 Anion Gap 7 (3-11) 05/07/22 03:49 BUN 25 mg/dl (6-23) H 05/07/22 03:49 Creatinine 1.63 mg/dl (0.6-1.4) H 05/07/22 03:49 Est Cr Clr Drug Dosing 46.8 ml/min 05/07/22 03:49 Est GFR ( Amer) 47.1 ml/min 05/07/22 03:49 Est GFR (Non-Af Amer) 40.6 ml/min 05/07/22 03:49 BUN/Creatinine Ratio 15.3 (10-20) 05/07/22 03:49 Glucose 133 mg/dl (70-99(Fasting)) H 05/07/22 03:49 POC Glucose 128 mg/dl (70-99) H 05/07/22 11:50 Calcium 9.8 mg/dl (8.5-10.1) 05/07/22 03:49 Total Bilirubin 0.7 mg/dl (0.2-1.0) 05/07/22 03:49 AST 26 U/L (13-39) 05/07/22 03:49 ALT 27 U/L (7-52) 05/07/22 03:49 Alkaline Phosphatase 62 U/L (34-104) 05/07/22 03:49 Troponin I High Sens 10.5 pg/ml (0-20) 05/07/22 10:57 Total Protein 7.8 gm/dl (6.0-8.3) 05/07/22 03:49 Albumin 4.3 gm/dl (3.4-5.0) 05/07/22 03:49 Globulin 3.5 gm/dl (2.5-4.0) 05/07/22 03:49 Albumin/Globulin Ratio 1.2 (0.9-2) 05/07/22 03:49 SARS-CoV-2, RNA, NAAT NEGATIVE (NEGATIVE) 05/07/22 03:55 Impressions Chest CTA 05/07/22 03:46 CT ANGIOGRAM OF THE CHEST CLINICAL HISTORY: Atypical chest pain. COMPARISON STUDY: Chest x-ray dated 05/07/2022. Chest CT dated 02/16/2022. TECHNIQUE: Following the IV administration of 108 cc of Optiray 320, CT angiogram of the chest was performed from the upper abdomen to the thoracic inlet utilizing the pulmonary embolus protocol. Images are reviewed in the axial, sagittal, and coronal planes. 3-D MIPS images are created and assessed. IV contrast was administered without complication. A dose lowering technique was utilized adhering to the principles of ALARA. CT DOSE: 511.33 mGy.cm FINDINGS: Thyroid: Imaged portions of the thyroid gland are normal in size and attenuation. Thoracic aorta: There is atherosclerotic calcification of the thoracic aorta, which is normal in caliber and demonstrates standard 3-vessel arch anatomy. No dissection is seen. Pulmonary vasculature: The pulmonary trunk is normal in caliber. There are no filling defects identified in main, lobar, or segmental pulmonary branches to suggest pulmonary embolus. Heart: The heart is enlarged and without pericardial effusion. The coronary arteries are densely calcified. Lungs and pleural spaces: There is mild emphysematous change. No airspace consolidation typical for pneumonia or pleural effusion is identified. Minimal secretions are noted in the right mainstem bronchus. There is diffuse peribronchial thickening. Scarring/atelectasis is noted at the lung bases. A 5 mm nodule with central cavitation is again seen in the lingula on image 123. This is unchanged from previous. Mediastinum: There is no mediastinal lymphadenopathy. Meseret: Clear. Axillae: There is no axillary lymphadenopathy. Upper abdomen: There is a tiny hiatal hernia. The gallbladder is distended but otherwise normal as visualized. There is fatty atrophy of the pancreas. Skeletal structures: The skeletal structures are osteopenic. Mild degenerative change is noted in the shoulders and spine. No lytic or blastic bony lesions are seen. There is a subacute/healing right posterolateral 8th rib fracture. IMPRESSION: 1. There is no evidence of pulmonary embolus in the main, lobar, or segmental pulmonary arteries. 2. Cardiomegaly and mild emphysema. 3. There is no airspace consolidation typical for pneumonia or pleural effusion. 4. Diffuse peribronchial thickening suggests bronchitis/reactive airway disease. Clinical correlation will be required. 5. There is a subacute/healing right posterolateral 8th rib fracture. 6. A 5 mm pulmonary nodule in the lingula is unchanged from 02/16/2022. If clinically warranted this can be followed as per the Fleischner criteria. See below. 7. Advanced coronary artery calcification. Please refer to below summary of Fleischner criteria recommendations for follow- up of incidental CT nodules (Mavis Moyer, Guidelines for management of small pulmonary nodules detected on CT scans: A statement from the Fleischner Society, Radiology 237: [phone].) SOLID NODULES Solitary nodule size: <6 mm * low risk patients: no follow-up needed * high risk patients: optional CT at 12 months Solitary nodule size: 6-8 mm * low risk patients: follow-up at 6-12 months, then consider further follow-up at 18-24 months * high risk patients: initial follow-up CT at 6-12 months and then at 18-24 months if no change Solitary nodule size: >8 mm * either low or high risk patients - consider follow-up CT at 3 months, and/or CT-PET, and/or biopsy Multiple nodules size: <6 mm * low risk patients: no routine follow-up * high risk patients: optional CT at 12 months Multiple nodules size: 6-8 mm * low risk patients: follow-up at 3-6 months, then consider further follow-up at 18-24 months * high risk patients: follow-up at 3-6 months, then at 18-24 months if no change Multiple nodules size: >8 mm * low risk patients: follow-up at 3-6 months, then consider further follow-up at 18-24 months * high risk patients: follow-up at 3-6 months, then at 18-24 months if no change Note: newly detected indeterminate nodule in persons 35 years of age or older. * low risk patients: minimal or absent history of smoking and/or other known risk factors * high risk patients: history of smoking or of other known risk factors (e.g. first degree relative with lung cancer, or exposure to asbestos, radon, uranium) * if a nodule up to 8 mm is partly solid or is ground glass further follow-up is required after 24 months to exclude possible slow growing adenocarcinoma (ASHLEY) SUBSOLID NODULES Solitary pure ground-glass nodule * nodule size <6 mm - no CT follow-up required * nodule size >=6 mm - follow-up CT at 6-12 months, then every 2 years until 5 years Solitary part-solid nodule * nodule size <6 mm - no CT follow-up required * nodule size >=6 mm - follow-up CT at 3-6 months. If unchanged, and solid component remains <6 mm, then annual follow-up for 5 years Multiple subsolid nodules * nodule size <6 mm - follow-up CT at 3-6 months, consider further follow-up at 2 and 4 years if stable * nodule size >=6 mm - follow-up CT at 3-6 months, subsequent management based on the most suspicious nodule(s) ACT 112: Negative or not required by law. Electronically signed by: Darius Ford M.D. 05/07/2022 7:58 AM Chest X-Ray 05/07/22 03:46 SINGLE VIEW CHEST CLINICAL HISTORY: Atypical chest pain FINDINGS: An AP, portable, upright chest radiograph is compared to study dated 02/28/2021 and correlated with chest CT dated 02/16/2022. The heart is mildly enlarged noting atherosclerotic calcification of the thoracic aorta. The pulmona ry vasculature is noncongested. Mild emphysema and chronic interstitial thickening is similar to previous. There is bibasilar scarring/atelectasis. No airspace consolidation or large pleural effusion is identified. No pneumothorax is seen. The skeletal structures are osteopenic. The bony thorax is grossly intact. IMPRESSION: Cardiomegaly and mild emphysema with no acute cardiopulmonary abnormality identified. ACT 112: Negative or not required by law. Electronically signed by: Darius Ford M.D. 05/07/2022 7:52 AM Hospital Course (1) Interscapular pain: 77yo M with PMHx of DM2, hypertension, hyperlipidemia, BPH with LUTS, ARIANE, left ureteral calculus, and vitamin D deficiency presented for worsening inter scapular pain. Interscapular pain -presented with 2 days constant interscapular pain -most likely 2/2 MSK etiology specifically left levator scapulae from examination -low concern for cardiac etiology -EKG: sinus rhythm with PACs and chronic RBB -Echo (05/07): EF 60-65%, no wall abnormalities, no sig. valvular abnormality -trops x2 wnl -CTA (05/06): no PE -performed OMT (specifically LAS) on levator scapulae musculature, did provide some acute relief; would consider continued OMT in outpatient setting if pain continues after 1 wk -perform home stretches focusing on stretching out back and posterior neck muscles -advised voltaren gel qid over levator scapulae until pain resolves -tylenol for anti-inflammatory and pain relief -f/u pcp Subacute, healing rib fx posterolateral right 8th rib -incident finding on chest CTA -pt endorses bumping into something 2 months ago with subsequent pain -would recommend outpatient pcp f/u for further evaluation of bone health; would consider DEXA scan if not previously done Vitamin D deficiency Continue vitamin D 25 mcg p.o. daily Hyperlipidemia Continue simvastatin 20 mg every evening. Check a fasting lipid panel Hypertension -Continue lisinopril Diabetes mellitus, type 2 -cont. Sitagliptin and metformin Obstructive sleep apnea -CPAP at bedtime as needed (2) Vitamin D deficiency: (3) Chronic kidney disease, stage 3 (moderate): (4) Hyperlipidemia: (5) Hypertension: (6) Diabetes mellitus, type 2: (7) Obstructive sleep apnea: Total Time Total Time Spent Total Time Spent (In Minutes): <30 Discharge Plan Discharge Items Patient Disposition: Home - Self-Care Reason For Visit: CHEST/INTTERSCAPULAR PAIN Discharge Diagnosis: Interscapular pain 2/2 left levator scapulae hypertonicity Activity: Per Instructions section Non-emergency contact: Primary Care Provider Call non-emergency contact if: you have any medication questions and your symptoms worsen Follow-up/Referrals: Laurie Lynn DO [Primary Care Provider] - 05/15/22 9:20 am Diet: Carb Consistent or DM2 Addtl Attending Provider Instructions: You presented to the hospital with worsening interscapular back pain over the past couple of days. Our initial concern was ruling out heart abnormalities that could be causing her pain. Your troponin level which is a cardiac enzyme indica ting stress on the heart was normal. An EKG was unremarkable similar to EKGs performed in the past. We also performed an echocardiogram, an ultrasound of the heart, which was normal. On physical exam we did find one negative posterior neck muscles to be tense and mildly tender when palpated. With these findings along with her studies pain seems to be musculoskeletal in nature likely from working on a car couple days ago. For treatment after discharge, as discussed, you can try combination of things as follows: -Voltaren gel to be put on left levator scapulae muscle 4 times a day until pain fully resolved -Home stretches specifically targeting the same muscle -Tylenol for anti-inflammatory and pain relief -You should follow-up with your primary care provider in the next week or two. If your pain does not resolve we can speak to your primary care provider for alternatives. This can include a formal physical therapy trial or osteopathic manipulative treatment which can focus in on the musculature involved. Furthermore, a chest CT taken in the hospital did show a subacute healing left posterolateral rib fracture of the 8th rib. Although healing, this would warrant further evaluation from your primary care provider into bone health. In the meantime, continue taking your home vitamin D supplement as usual. Pending Studies at Discharge: No Stand-Alone Forms: [facility], Smoking Cessation Medications and DC Order Prescriptions: Continued (DME) FreeStyle Lite Strips Strip See Rx Instructions .Route Qty: 100 RF: 5 metformin 500 mg tablet 500 mg PO BID Qty: 180 RF: 1 simvastatin 20 mg tablet 20 mg PO QPM Qty: 90 RF: 1 Januvia 100 mg tablet 100 mg PO QAM Qty: 90 RF: 1 cholecalciferol (vitamin D3) 25 mcg (1,000 unit) capsule 25 mcg PO DAILY RF: 0 lisinopril 20 mg tablet 20 mg PO QAM RF: 0 Discharge Orders: Discharge Order (Routine); Ordered 05/07/22 Ordered By: Max Aguirre Admission Data Admit Date/Time: 05/07/22 06:08 Attending Provider: Preet Patel Admit Provider: Dennys Darby Primary Care Provider: Laurie Lynn Other Providers: Dennys Darby Other Interventions: Discharge Summary Assessment (RN) Last Done: 05/07/22 15:27 Supervising Physician Co-Signing Physician Notes I personally examined the patient and verified all pate points of history and exam, discussed case, and agree with decision making with Dr Aguirre. Ongoing shoulder blade painnotes that it was bilateral before now more on the right. Also has rib fractureit is not at all in the same area where his pain is nowhe notes this was about 2 months ago. Vitals noted, in general he is awake and alert pleasant no distress. HEENT normocephalic atraumatic mucous membranes moist. Breathing unlabored no accessory muscle use good effort. Skin shows no rashes no pallor or icterus. Neuro without focal deficits. Musculoskeletal/osteopathic he has no tenderness palpation along his ribs in the area of the fracture, he does have high tone/tender/decreased range of motion in his right periscapular musculature in the region of levator scapulaedirect myofascial/inhibitory pressure/LASimprovement in tissue texture, patient tolerated well. Scapular painpredominantly levator scapula a muscle spasmOMT as above. Safe/stable for homecardiac work-up was negative. Voltaren gel 4 times daily. Follow-up for further OMT if needed. Stretches taught. Rib fracturehealing, does not appear to directly relate to current symptoms. Outpatient bone health work-up. Resident Activity Tracking Resident Involvement: Resident Care Provided Care Provided: Adult [facility]
--- NOTE | 2022-05-07 19:14 | Billing Data ---
Date of Service May 07, 2022 Coding Level of Care Code 84019 OBS Care - Discharge
--- NOTE | 2022-05-07 19:14 | Hospitalist Progress Note ---
Date of Service May 07, 2022 Assessment & Plan Admission and Anticipated Discharge Date Admission Date: May 07, 2022 Results & Data Results & Data ([facility]) Vital Signs (Past 12 Hours) Vital Signs Temp Pulse Pulse Resp BP BP Pulse Ox 05/07/22 16:20 83 05/07/22 15:27 98.1 F 82 20 128/85 150/74 H 93 05/07/22 15:14 98.1 F 82 20 150/74 H 93 05/07/22 08:15 72 05/07/22 07:51 98.2 F 85 16 158/80 H 93 PG Care Time/CCT Total # of Minutes Spent Total Time Spent with Patient: Total time spent is greater than 50% in coordination of care (as documented) at patient's floor/unit and/or counseling patient: Coding Level of Care Code None CPT Codes Musculoskeletal - Musculoskeletal: [address] 1-2 Body regions ([id number])
[2022-05-07] MEDS ORDERED: SIMVASTATIN 20 MG TAB PO SCH (21:00)
--- NOTE | 2022-05-07 22:47 | Electrocardiogram Report ---
Test Reason : Blood Pressure : / mmHG Vent. Rate : 089 BPM Atrial Rate : 089 BPM P-R Int : 202 ms QRS Dur : 126 ms QT Int : 366 ms P-R-T Axes : 062 083 036 degrees QTc Int : 445 ms Sinus rhythm with Premature atrial complexes Right bundle branch block Abnormal ECG When compared with ECG of 16-FEB-2022 00:36, No significant change was found Confirmed by Jarocho Desir ([id number]) on 05/07/2022 10:46:53 PM Referred By: REFERRED SELF Confirmed By:Jarocho Desir
== END 2022-05-07 17:03 | disposition home or self-care (01) ==
LOC: 2N 03:28 → ED 03:28 → SUATTDRO 06:08 → 2N 07:57